=== PATIENT | female | born 1990 | race American Indian/Alaskan Native ===

== ENCOUNTER 2017-12-11 19:34 | Inpatient (IN) | payer OTHER ==
[2017-12-11] MEDS ORDERED: MINERAL OIL PO PRN (20:10)
[2017-12-11] MEDS ORDERED: SUBLIMAZE IV PRN (20:10)
[2017-12-11] MEDS ORDERED: CERVIDIL VG ONE (20:10)
[2017-12-11] MEDS ORDERED: BRETHINE IVP PRN (20:10)
[2017-12-11] MEDS ORDERED: XYLOCAINE 2% INFILTRATI ONE (20:10)
[2017-12-11] MEDS ORDERED: BRETHINE SUB-Q PRN (20:10)
[2017-12-11] MEDS ORDERED: POLYCILLIN/NS 2 GM/100 ML 2 GM/100 ML BAG IV ONE (20:10)
[2017-12-11] MEDS ORDERED: ePHEDrine SULFATE IV PRN (20:10)
--- NOTE | 2017-12-11 20:20 | History and Physical Report ---
History of Present Illness Date of examination: 12/11/17 Date of admission: 12/11/17 19:34 Chief complaint: sent from office for IOL History of present illness: Pt diagnosed with severe pre E superimposed on CHTN. As per Dr. Ornelas pt to be delivered by 37 weeks. Pt is 36.6 weeks with bps 160s/100s. Pt sent from office at 1600pm but has just arrived for IOL for severe pre E superimposed on CHTN. She has not been seen in the office since but was being seen by [facility] Medications and Allergies Allergies Allergy/AdvReac Type Severity Reaction Status Date / Time No Known Allergies Allergy Unverified 12/11/17 20:06 Active Meds: Active Medications Dinoprostone (Cervidil) 10 mg VG ONCE ONE Stop: 12/11/17 20:11 Ephedrine Sulfate (Ephedrine Sulfate) 10 mg IV Q2M PRN PRN Reason: Hypotension Fentanyl (Sublimaze) 100 mcg IV Q2H PRN PRN Reason: Labor Pain Hydralazine HCl (Apresoline) 10 mg IV Q30MIN PRN PRN Reason: Hypertension Ampicillin Sodium (Ampicillin/Ns 1 Gm/50 Ml) 1 gm in 50 mls @ 100 mls/hr IV Q4HR CHELY; Protocol Ampicillin Sodium (Polycillin/Ns 2 Gm/100 Ml) 2 gm in 100 mls @ 100 mls/hr IV ONCE ONE; Protocol Stop: 12/11/17 21:09 Lactated Ringer's (Lactated Ringers) 1,000 mls @ 125 mls/hr IV DIRECT CHELY - Vital Signs Vital signs: Vital Signs Pulse BP Pulse Ox 101 H 196/108 99 12/11/17 19:55 12/11/17 19:55 12/11/17 19:55 Temp Pulse Resp BP Pulse Ox 93 H 181/109 99 12/11/17 20:10 12/11/17 20:10 12/11/17 20:00 Results All other labs normal.
[2017-12-11] MEDS ORDERED: MAGNESIUM SULFATE 4GM/100ML 4 GM/100 ML BAG IV ONE (20:36)
[2017-12-11] MEDS: APRESOLINE IV PRN (20:51)
[2017-12-11 20:54] LABS: Hematocrit 28.1 % (30.3-42.9); Hemoglobin 8.9 gm/dl (10.1-14.3); Mean Corpuscular HGB Conc 32 % (30-34); Platelet Count 354 K/mm3 (140-440); Red Blood Count 4.06 M/mm3 (3.65-5.03); Red Cell Distribution Width 17.3 % (13.2-15.2)
[2017-12-11 20:55] LABS: Mean Corpuscular Hemoglobin 22 pg (28-32); Mean Corpuscular Volume 69 fl (79-97)
[2017-12-11] MEDS ORDERED: PITOCin/NS 30 UNIT/500ML 30 UNITS/500 ML BAG IV SCH (21:00)
[2017-12-11] MEDS ORDERED: PITOCin/NS 20 UNIT/1000ML DRIP 20 UNITS/1,000 ML BAG IV SCH (21:00)
[2017-12-11] MEDS ORDERED: MAGNESIUM SULFATE 40GM/1000ML 40 GM/1,000 ML BAG IV SCH (21:00)
[2017-12-11 21:23] LABS: Alanine Aminotransferase 23 units/L (7-56); Uric Acid 4.2 mg/dL (3.5-7.6)
[2017-12-11] MEDS: LACTATED RINGERS 1,000 ML IV SCH (22:26)
[2017-12-12] MEDS ORDERED: AMPICILLIN/NS 1 GM/50 ML 1 GM/50 ML BAG IV SCH
[2017-12-12] MEDS: APRESOLINE IV PRN ×3 (00:26→17:55)
[2017-12-12] MEDS ORDERED: ZOFRAN IV PRN ×2 (00:50→14:14)
[2017-12-12] MEDS ORDERED: ZOFRAN ONE ×2 (00:52→15:24)
--- NOTE | 2017-12-12 08:46 | Progress Note ---
Assessment and Plan Patient c/o feeling like her heart is beating fast, requesting c/s delivery d/ t concerns over heart condition. Patient states she was supposed to see cardiology next week for final clearance for vaginal delivery. Records printed from 09/15/[address] Angela states pt should be able to have vaginal delivery unless a c/s is obstetrically necessary. Patient states she "doesn't feel comfortable" with continuing induction. Mag Sulfate infusing @ 2gm/hr, urine output adequate. pt denies MEI, change in vision or epigastric pain. maternal tachycardia in the 100's. b/p's elevated, last check 142/79. Cervidil remains in place until 10:[address] Dominguez can speak to patient. Dr. Dominguez informed. - Patient Problems (1) 37 weeks gestation of Current Visit: Yes Status: Acute (2) Pre-eclampsia superimposed on chronic hypertension, antepartum Current Visit: Yes Status: Acute (3) Severe pre-eclampsia Current Visit: Yes Status: Acute Qualifiers: Trimester: third trimester Qualified Code(s): O14.13 - Severe pre-eclampsia , third trimester (4) VSD (ventricular septal defect) Current Visit: Yes Status: Acute Subjective - Subjective Date of service: 12/12/17 Principal diagnosis: IUP @ 37 weeks: chtn superimposed pre-e, perimembranous VSD Patient reports: movement normal, contractions, no loss of fluid, no vaginal bleeding Objective - Vital Signs Vital Signs: Vital Signs - 12hr 12/11/17 12/11/17 12/11/17 20:50 20:51 20:55 Temperature Pulse Rate 92 H 92 H 98 H Respiratory 18 Rate Blood Pressure 170/102 179/113 Blood Pressure 170/102 [Left] O2 Sat by Pulse 100 Oximetry 12/11/17 12/11/17 12/11/17 21:42 22:11 22:12 Temperature Pulse Rate 93 H 104 H 103 H Respiratory 18 Rate Blood Pressure Blood Pressure 179/101 [Left] O2 Sat by Pulse 100 93 97 Oximetry 12/11/17 12/11/17 12/11/17 22:17 22:19 22:22 Temperature Pulse Rate 106 H 106 H 108 H Respiratory Rate Blood Pressure 164/89 Blood Pressure [Left] O2 Sat by Pulse 100 100 Oximetry 12/11/17 12/11/17 12/11/17 22:35 22:51 23:05 Temperature Pulse Rate 98 H 104 H 105 H Respiratory Rate Blood Pressure 148/82 166/104 151/85 Blood Pressure [Left] O2 Sat by Pulse Oximetry 12/11/17 12/11/17 12/11/17 23:20 23:35 23:39 Temperature Pulse Rate 111 H 110 H 113 H Respiratory Rate Blood Pressure 161/93 162/91 Blood Pressure [Left] O2 Sat by Pulse 100 Oximetry 12/11/17 12/12/17 12/12/17 23:50 00:07 00:21 Temperature Pulse Rate 110 H 129 H 115 H Respiratory Rate Blood Pressure 171/94 205/104 184/104 Blood Pressure [Left] O2 Sat by Pulse Oximetry 12/12/17 12/12/17 12/12/17 00:26 00:31 00:35 Temperature Pulse Rate 115 H 111 H 107 H Respiratory Rate Blood Pressure 181/104 159/88 Blood Pressure [Left] O2 Sat by Pulse 100 Oximetry 12/12/17 12/12/17 12/12/17 00:36 00:41 00:52 Temperature Pulse Rate 116 H 126 H 121 H Respiratory Rate Blood Pressure 160/98 Blood Pressure [Left] O2 Sat by Pulse 100 100 Oximetry 12/12/17 12/12/17 12/12/17 01:06 01:20 01:27 Temperature Pulse Rate 112 H 115 H 117 H Respiratory Rate Blood Pressure 142/78 146/78 Blood Pressure [Left] O2 Sat by Pulse 100 Oximetry 12/12/17 12/12/17 12/12/17 01:32 01:35 01:37 Temperature Pulse Rate 132 H 117 H 112 H Respiratory Rate Blood Pressure 147/79 Blood Pressure [Left] O2 Sat by Pulse 99 98 Oximetry 12/12/17 12/12/17 12/12/17 01:42 01:47 01:51 Temperature Pulse Rate 113 H 113 H 111 H Respiratory Rate Blood Pressure 146/70 Blood Pressure [Left] O2 Sat by Pulse 99 100 Oximetry 12/12/17 12/12/17 12/12/17 01:52 01:55 01:57 Temperature Pulse Rate 116 H 115 H 116 H Respiratory Rate Blood Pressure Blood Pressure [Left] O2 Sat by Pulse 98 82 L 96 Oximetry 12/12/17 12/12/17 12/12/17 02:02 02:05 02:07 Temperature Pulse Rate 114 H 109 H 113 H Respiratory Rate Blood Pressure 140/77 Blood Pressure [Left] O2 Sat by Pulse 100 100 Oximetry 12/12/17 12/12/17 12/12/17 02:12 02:17 02:19 Temperature 98 F Pulse Rate 109 H 117 H Respiratory 20 Rate Blood Pressure Blood Pressure [Left] O2 Sat by Pulse 100 100 Oximetry 12/12/17 12/12/17 12/12/17 02:20 02:22 02:27 Temperature Pulse Rate 116 H 116 H 108 H Respiratory Rate Blood Pressure 149/78 Blood Pressure [Left] O2 Sat by Pulse 100 100 Oximetry 12/12/17 12/12/17 12/12/17 02:32 02:36 02:37 Temperature Pulse Rate 103 H 108 H 103 H Respiratory Rate Blood Pressure 164/100 Blood Pressure [Left] O2 Sat by Pulse 100 100 Oximetry 12/12/17 12/12/17 12/12/17 02:42 02:47 02:52 Temperature Pulse Rate 116 H 110 H 111 H Respiratory Rate Blood Pressure 137/80 Blood Pressure [Left] O2 Sat by Pulse 100 100 100 Oximetry 12/12/17 12/12/17 12/12/17 02:57 03:02 03:05 Temperature Pulse Rate 116 H 115 H 117 H Respiratory Rate Blood Pressure 140/81 Blood Pressure [Left] O2 Sat by Pulse 99 99 Oximetry 12/12/17 12/12/17 12/12/17 03:07 03:12 03:17 Temperature Pulse Rate 115 H 116 H 110 H Respiratory Rate Blood Pressure Blood Pressure [Left] O2 Sat by Pulse 100 99 99 Oximetry 12/12/17 12/12/17 12/12/17 03:20 03:22 03:27 Temperature Pulse Rate 110 H 116 H 105 H Respiratory Rate Blood Pressure 144/77 Blood Pressure [Left] O2 Sat by Pulse 99 100 Oximetry 12/12/17 12/12/17 12/12/17 03:32 03:36 03:37 Temperature Pulse Rate 103 H 105 H 121 H Respiratory Rate Blood Pressure 155/101 Blood Pressure [Left] O2 Sat by Pulse 100 100 Oximetry 12/12/17 12/12/17 12/12/17 03:42 03:47 03:52 Temperature Pulse Rate 109 H 107 H 110 H Respiratory Rate Blood Pressure 160/92 Blood Pressure [Left] O2 Sat by Pulse 100 100 98 Oximetry 12/12/17 12/12/17 12/12/17 03:59 04:05 04:06 Temperature Pulse Rate 120 H 120 H 117 H Respiratory Rate Blood Pressure 145/78 Blood Pressure [Left] O2 Sat by Pulse 100 100 Oximetry 12/12/17 12/12/17 12/12/17 04:10 04:15 04:19 Temperature 98 F Pulse Rate 111 H 113 H Respiratory 18 Rate Blood Pressure Blood Pressure [Left] O2 Sat by Pulse 100 100 Oximetry 12/12/17 12/12/17 12/12/17 04:20 04:25 04:55 Temperature Pulse Rate 120 H 113 H 104 H Respiratory Rate Blood Pressure 151/81 153/81 Blood Pressure [Left] O2 Sat by Pulse 100 100 Oximetry 12/12/17 12/12/17 12/12/17 05:24 05:54 06:26 Temperature Pulse Rate 137 H 137 H 101 H Respiratory Rate Blood Pressure 139/88 144/88 165/101 Blood Pressure [Left] O2 Sat by Pulse Oximetry 12/12/17 12/12/17 12/12/17 06:55 07:25 07:55 Temperature Pulse Rate 118 H 102 H 102 H Respiratory Rate Blood Pressure 148/102 163/87 162/106 Blood Pressure [Left] O2 Sat by Pulse Oximetry 12/12/17 12/12/17 12/12/17 08:25 08:29 08:34 Temperature Pulse Rate 98 H 106 H 102 H Respiratory Rate Blood Pressure 158/100 Blood Pressure [Left] O2 Sat by Pulse 100 100 Oximetry 12/12/17 08:39 Temperature Pulse Rate 109 H Respiratory Rate Blood Pressure Blood Pressure [Left] O2 Sat by Pulse 100 Oximetry - Exam Breasts: normal Cardiovascular: Other (murmur present) Abdomen: Present: normal appearance, soft Vulva: both: normal Uterus: Present: normal FHR: category 1 Uterine Contraction Monitor Mode: External Uterine Contraction Pattern: Regular Uterine Tone Measurement Phase: Contraction Uterine Contraction Intensity: Mild Extremities: normal Deep Tendon Reflex Grade: Normal +2 - Labs Labs: Abnormal Labs 12/11/17 12/11/17 12/12/17 20:39 20:39 01:50 WBC 11.4 H Hgb 8.9 L Hct 28.1 L MCV 69 L MCH 22 L RDW 17.3 H Magnesium 3.90 H Lactate Dehydrogenase 302 H 12/12/17 06:12 WBC Hgb Hct MCV MCH RDW Magnesium 4.60 H Lactate Dehydrogenase Laboratory Results - last 24 hr 12/11/17 12/11/17 12/11/17 20:00 20:39 20:39 WBC 11.4 H RBC 4.06 Hgb 8.9 L Hct 28.1 L MCV 69 L MCH 22 L MCHC 32 RDW 17.3 H Plt Count 354 Creatinine 0.7 Estimated GFR > 60 Uric Acid 4.2 Magnesium AST 24 ALT 23 Lactate Dehydrogenase 302 H Blood Type B POSITIVE Antibody Screen Negative 12/12/17 12/12/17 01:50 06:12 WBC RBC Hgb Hct MCV MCH MCHC RDW Plt Count Creatinine Estimated GFR Uric Acid Magnesium 3.90 H 4.60 H AST ALT Lactate Dehydrogenase Blood Type Antibody Screen
[2017-12-12] MEDS: LACTATED RINGERS 1,000 ML IV SCH (10:50)
--- NOTE | 2017-12-12 12:18 | Event Note ---
Date: 12/12/17 Came to see the patient due to her desire to have an elective primary section. Patient now with episodes of elevated blood pressures with diastolics over 100 has gotten better with Apresoline and the patient now remote from vaginal delivery with increase in blood pressures. These are indications for operative delivery which the patient desires.Patient informed the risks of the surgery include bleeding possibly bleeding heavy enough to require blood transfusion, infection possible damage to bowel bladder ureter. All questions answered. Patient agrees to proceed
[2017-12-12] MEDS ORDERED: TYLENOL PO ONE (12:49)
--- NOTE | 2017-12-12 13:44 | Anesthesia Day of Surgery ---
Anesthesia Day of Surgery - Day of Surgery Patient Examined: Yes Patient H&P Reviewed: Yes Patient is NPO: Yes Beta Blockers: No Cardiac Clearance: No Pulmonary Clearance: No
--- NOTE | 2017-12-12 13:45 | Anesthesia Consultation ---
Anesthesia Consult and Med Hx - Airway Anesthetic Teeth Evaluation: Good ROM Head & Neck: Adequate Mental/Hyoid Distance: Adequate Mallampati Class: Class III Intubation Access Assessment: Probably Good - Pulmonary Exam CTA: Yes - Cardiac Exam Anesthetic Concerns: Preeclampsia and heart murmur - Pre-Operative Health Status ASA Pre-Surgery Classification: ASA3 Proposed Anesthetic Plan: General - Pulmonary Hx Smoking: No Hx Asthma: No Hx Respiratory Symptoms: No SOB: No COPD: No Home Oxygen Therapy: No Hx Pneumonia: No - Cardiovascular System Hx Hypertension: Yes Hx Coronary Artery Disease: No Hx Heart Attack/AMI: No Hx Angina: No Hx Percutaneous Transluminal Coronary Angioplasty (PTCA): No Hx Cardia Arrhythmia: No Hx Pacemaker: No Hx Internal Defibrillator: No Hx Valvular Heart Disease: No Hx Heart Murmur: No Hx Peripheral Vascular Disease: No - Central Nervous System Hx Neuromuscular Disorder: No Hx Seizures: No CVA: No Hx Back Pain: No Hx Psychiatric Problems: No - Gastrointestinal Hx Ulcer: No Hx Gastroesophageal Reflux Disease: No - Endocrine Hx Renal Disease: No Hx End Stage Renal Disease: No Hx Cirrhosis: No Hx Liver Disease: No Hx Insulin Dependent Diabetes: No Hx Non-Insulin Dependent Diabetes: No Hx Thyroid Disease: No Hx Hypothyroidism: No Hx Hyperthyroidism: No - Hematic Hx Sickle Cell Disease: No - Other Systems Hx Alcohol Use: No Hx Substance Use: No Hx Cancer: No Hx Obesity: No
[2017-12-12] MEDS ORDERED: ANCEF/STERILE WATER 2 GM/20 ML 2 GM/20 ML SYRINGE IV ONE (14:13)
[2017-12-12] MEDS ORDERED: BICITRA ONE (14:13)
[2017-12-12] MEDS ORDERED: PEPCID IV ONE (14:14)
[2017-12-12] MEDS ORDERED: PHENERGAN PO PRN (14:14)
[2017-12-12] MEDS ORDERED: NARCAN 0.4 MG/1 ML IV PRN (14:14)
[2017-12-12] MEDS ORDERED: PHENERGAN PR PRN (14:14)
[2017-12-12] MEDS ORDERED: DILAUDID IV PRN (14:14)
[2017-12-12] MEDS ORDERED: BENADRYL IV PRN (14:14)
[2017-12-12] MEDS ORDERED: REGLAN ONE (14:14)
[2017-12-12] MEDS ORDERED: TORADOL IV PRN (14:15)
[2017-12-12] MEDS ORDERED: NACL 0.9% IR ONE (15:00)
[2017-12-12] MEDS ORDERED: SODIUM CHLORIDE FLUSH SYRINGE 10 ML IV NR (15:00)
[2017-12-12] MEDS ORDERED: WATER FOR IRRIG STERILE IR ONE (15:00)
[2017-12-12] MEDS ORDERED: NEO SYNEPHRINE/NS Syringe(OR USE) IV ONE (15:22)
[2017-12-12] MEDS ORDERED: MORPHINE ONE (15:23)
--- NOTE | 2017-12-12 15:57 | Operative Report ---
Operative Report Operative Report: Date of procedure: 12/12/2017 Pre-operative diagnosis: Intrauterine at 37 weeks with chronic hyper tension was superimposed preeclampsia, elevated blood pressures remote from vaginal delivery Post-operative diagnosis: Same Procedure name(s): Primary low transverse section Surgeon: Sathish Dominguez MD Java Scala Developer: Kajal Morgan CST Anesthesia: Spinal EBL: 800 mL Complications: None Findings: Visual normal uterus tubes and ovaries bilaterally female , weight 5 lbs. 9 oz. Apgars 8 at 1 minute and 9 at 5 minutes Specimen(s): None Procedure: The patient was brought to the operating room. A spinal was placed without any complications. She was then placed in left lateral tilt. Prepped and draped in the usual sterile manner. After testing for adequate anesthesia level, a Pfannenstiel incision was made. This incision was taken down to the fascia. The fascia was then nicked in the midline. This incision was extended out laterally with Canales scissors. The fascia was then sharply and bluntly from the underlying rectus muscles. The rectus muscles were bluntly and sharply . The peritoneum was then entered with the radio operator ground's fingers. This incision was spread vertically with care not to damage the bladder below. The bladder flap was then formed sharply and bluntly with Metzenbaum scissors. The Marcell self-retaining tractor was then placed without any difficulty. A transverse incision was made in lower uterine segment. This incision was extended laterally with the operators fingers. The amniotic sac was then entered bluntly with the radio operator ground's fingers. The was delivered from the vertex position. Bulb suction on the mother's abdomen. Cord was double clamped and cut. The infant was then passed to the nursery personnel who were in attendance. The above scores were given by the nursery personnel. The placenta was then bluntly removed. The uterus was then externalized and wiped clean the remaining products. Uterus was initially with some atony improved with IV Pitocin. The uterine incision was closed in layers. The first incision was closed in a locking manner using 0 Vicryl. This was followed by imbricating stitch also with 0 Vicryl. This closure was hemostatic. The bladder flap was copiously irrigated and found to be hemostatic. The pelvis was copiously irrigated and found to be hemostatic. The uterus was then placed back to the patient's abdomen. The retractors were removed. The rectus muscles were inspected and found to be hemostatic. The fascia was then closed in a running manner using 0 Vicryl. This incision was hemostatic irrigation Bovie. The skin was reapproximated with 4-0 Vicryl subcuticularly. The patient tolerated procedure well. Her urine was clear. The was admitted to the nursery. The patient was accompanied to recovery room in good condition. Instrument count correct -3.
[2017-12-12] MEDS ORDERED: MAGNESIUM SULFATE 40GM/1000ML 40 GM/1,000 ML BAG IV SCH (16:00)
[2017-12-12] MEDS ORDERED: NORMODYNE IV ONE (17:40)
[2017-12-13] MEDS ORDERED: TUCKS PAD TP PRN (00:18)
[2017-12-13] MEDS ORDERED: MYLICON PO PRN (00:18)
[2017-12-13] MEDS ORDERED: ANCEF/NS 1 GM/50 ML 1 GM/50 ML BAG IV SCH (00:18)
[2017-12-13] MEDS ORDERED: MILK OF MAGNESIA PO PRN (00:18)
[2017-12-13] MEDS ORDERED: PITOCin/NS 20 UNIT/1000ML DRIP 20 UNITS/1,000 ML BAG IV SCH (00:18)
[2017-12-13] MEDS ORDERED: LANSINOH TP PRN (00:18)
[2017-12-13] MEDS ORDERED: NARCAN 0.4 MG/1 ML IV PRN (00:18)
[2017-12-13] MEDS ORDERED: D5LR 1,000 ML IV SCH (00:18)
[2017-12-13] MEDS ORDERED: SODIUM CHLORIDE FLUSH SYRINGE 10 ML IV NR (00:18)
[2017-12-13] MEDS ORDERED: ZOFRAN IV PRN (00:18)
[2017-12-13] MEDS: TORADOL IV SCH ×2 (00:44→08:18)
[2017-12-13] MEDS: ceFAZolin 1 GM in NACL 0.9% 20 ML IV SCH ×2 (01:15→09:12)
[2017-12-13] MEDS: NORMODYNE PO SCH ×3 (01:26→21:20)
[2017-12-13 03:42] LABS: Hematocrit 31.7 % (30.3-42.9)
[2017-12-13] MEDS ORDERED: BOOSTRIX IM ONE (06:00)
--- NOTE | 2017-12-13 07:29 | Event Note ---
Date: 12/13/17 Mag level 7.4 noted during chart review this morning, nurse called and instructed to turn mag down to 1gm/hr.
[2017-12-13] MEDS: PRENATAL VITAMIN PO SCH (10:19)
--- NOTE | 2017-12-13 10:44 | Progress Note ---
Assessment and Plan patient doing well, no complaints. VSSAF - b/p's 115-130/70-80's with one outlier of 155/103. Patient denies MEI, visual changes or epigastric pain. Most recent mag level 7.4 - reduced mag to 1gm/hr until d/c @ 1500. [place] in place, output adequate (rn emptied 400ml this AM - not yet documented in chart; 33.3ml/ hr). Will continue to monitor output. postop H&H 05/13.7. Continue postop pathway. - Patient Problems (1) Pre-eclampsia superimposed on chronic hypertension, antepartum Current Visit: Yes Status: Acute (2) VSD (ventricular septal defect) Current Visit: Yes Status: Acute (3) delivery delivered Current Visit: Yes Status: Acute Subjective - Subjective Date of service: 12/13/17 Principal diagnosis: postop day #1 s/p primary c/s, pre-e Patient reports: appetite normal, pain well controlled, no flatus, no nauseated [place]: doing well, bottle feeding Objective - Vital Signs Latest vital signs: Vital Signs Temp Pulse Resp BP BP Pulse Ox 12/13/17 10:19 84 135/89 12/13/17 10:13 98.0 F 83 18 135/89 97 12/13/17 08:23 97.5 F L 80 18 131/88 97 12/13/17 06:16 97.5 F L 81 19 115/77 96 12/13/17 05:29 128/72 12/13/17 05:23 97.5 F L 81 19 115/77 96 12/13/17 01:26 155/103 12/12/17 23:00 98.6 F 87 16 137/87 12/12/17 20:44 86 98 12/12/17 20:39 83 98 12/12/17 20:35 86 146/85 12/12/17 20:34 87 97 12/12/17 20:29 90 98 12/12/17 20:24 92 H 98 12/12/17 20:20 90 150/86 12/12/17 20:19 94 H 98 12/12/17 20:14 90 98 12/12/17 20:09 86 98 12/12/17 20:05 92 H 146/85 12/12/17 20:04 94 H 98 12/12/17 19:59 86 97 12/12/17 19:54 85 98 12/12/17 19:50 86 142/83 12/12/17 19:49 93 H 98 12/12/17 19:44 99 H 98 12/12/17 19:39 87 97 12/12/17 19:35 88 151/84 12/12/17 19:34 91 H 97 12/12/17 19:32 97.8 F 18 12/12/17 19:29 87 95 12/12/17 19:28 18 12/12/17 19:24 85 96 12/12/17 19:20 87 148/84 12/12/17 19:19 93 H 97 12/12/17 19:14 89 96 12/12/17 19:09 90 97 12/12/17 19:05 90 148/84 12/12/17 19:04 88 98 12/12/17 18:59 87 98 12/12/17 18:54 91 H 97 12/12/17 18:50 92 H 144/81 12/12/17 18:49 95 H 97 12/12/17 18:47 92 H 144/81 12/12/17 18:44 96 H 98 12/12/17 18:39 97 H 98 12/12/17 18:37 182/96 12/12/17 18:35 98 H 182/96 12/12/17 18:20 180/101 12/12/17 18:12 178/104 12/12/17 17:55 178/110 12/12/17 17:52 98 12/12/17 17:40 171/105 12/12/17 17:30 170/107 12/12/17 17:05 98 F 84 20 163/102 12/12/17 17:00 84 21 166/101 12/12/17 16:57 83 23 160/95 12/12/17 16:55 84 23 160/95 12/12/17 16:50 85 22 158/96 12/12/17 16:45 87 22 160/96 99 12/12/17 16:40 84 20 154/94 99 12/12/17 16:35 85 22 140/95 100 12/12/17 16:30 91 H 26 H 137/89 99 12/12/17 16:25 85 24 144/88 100 12/12/17 16:20 92 H 23 154/94 100 12/12/17 16:15 87 26 H 154/92 100 12/12/17 16:10 89 25 H 153/93 100 12/12/17 16:05 98 H 15 156/88 100 12/12/17 16:00 95 H 25 H 146/96 94 12/12/17 15:56 94 H 25 H 100 12/12/17 15:53 98 F 94 H 16 141/81 100 12/12/17 15:00 58 L 15 100 12/12/17 14:58 62 9 L 100 12/12/17 14:04 101 H 98 12/12/17 13:59 100 H 98 12/12/17 13:55 106 H 158/85 12/12/17 13:54 107 H 99 12/12/17 13:49 102 H 99 12/12/17 13:44 108 H 99 12/12/17 13:39 106 H 98 12/12/17 13:34 102 H 97 12/12/17 13:29 103 H 98 12/12/17 13:24 104 H 143/92 97 12/12/17 13:19 98 H 97 12/12/17 13:14 99 H 98 12/12/17 13:00 110 H 98 12/12/17 12:55 107 H 149/89 98 12/12/17 12:50 114 H 99 12/12/17 12:45 110 H 99 12/12/17 12:24 116 H 134/78 12/12/17 11:55 111 H 129/74 12/12/17 11:25 111 H 141/77 12/12/17 11:10 116 H 99 12/12/17 11:05 107 H 100 12/12/17 11:00 112 H 100 12/12/17 10:54 99 H 148/84 12/12/17 10:52 104 H 157/84 12/12/17 10:49 157/84 12/12/17 10:47 100 H 100 12/12/17 10:42 100 H 100 Intake and Output 12/12/17 12/13/17 12/13/17 23:59 07:59 15:59 Intake Total 300 Output Total 300 Balance 0 Intake: Intake, Free Water 300 Output: Urine 300 Indwelling Catheter 300 Other: Total, Output Amount 300 - Exam Breasts: Present: normal Cardiovascular: Present: Regular rate Lungs: Present: Clear to auscultation, Normal air movement Abdomen: Present: normal appearance, soft Vulva: both: normal Uterus: Present: normal, firm, fundal height at umbilicus Extremities: Present: normal Incision: Present: normal, dry, dressed (rn to remove this afternoon) - Labs Labs: Abnormal lab results 12/12/17 12/12/17 12/13/17 Range/Units 12:41 17:50 00:17 Hgb (10.1-14.3) gm/dl Magnesium 5.50 H 5.40 H 6.00 H (1.7-2.3) mg/dL 12/13/17 12/13/17 Range/Units 03:23 05:41 Hgb 10.0 L (10.1-14.3) gm/dl Magnesium 7.40 H (1.7-2.3) mg/dL
[2017-12-13] MEDS: MOTRIN PO PRN (17:50)
--- NOTE | 2017-12-13 19:48 | Progress Note ---
Subjective Date of service: 12/13/17 Principal diagnosis: postop day #1 s/p primary c/s, pre-e Interval history: Pt is doing well. No anesthetic related complaints. Objective - Constitutional Vitals: Vital Signs - 12hr 12/13/17 12/13/17 12/13/17 08:23 10:13 10:19 Temperature 97.5 F L 98.0 F Pulse Rate 80 83 84 Respiratory 18 18 Rate Blood Pressure 131/88 135/89 135/89 O2 Sat by Pulse 97 97 Oximetry 12/13/17 15:15 Temperature 97.6 F Pulse Rate 86 Respiratory 18 Rate Blood Pressure 131/88 O2 Sat by Pulse 100 Oximetry - Labs CBC & Chem 7: 12/13/17 03:23 12/11/17 20:39 Labs: Abnormal lab results 12/13/17 12/13/17 12/13/17 Range/Units 00:17 03:23 05:41 Hgb 10.0 L (10.1-14.3) gm/dl Magnesium 6.00 H 7.40 H (1.7-2.3) mg/dL
[2017-12-13] MEDS: NORCO 5/325 PO PRN (21:21)
[2017-12-14] MEDS: MOTRIN PO PRN ×3 (00:05→16:00)
[2017-12-14] MEDS: NORCO 5/325 PO PRN ×3 (05:15→18:00)
[2017-12-14] MEDS ORDERED: BOOSTRIX IM ONE (06:00)
[2017-12-14] MEDS: NORMODYNE PO SCH ×2 (10:00→22:30)
[2017-12-14] MEDS: PRENATAL VITAMIN PO SCH (10:43)
--- NOTE | 2017-12-14 12:08 | Progress Note ---
Assessment and Plan patient doing well, no complaints. pain well controlled. lochia scant, incision D&I. B/P running 130-150's/80-90's w/ one outlier 172/105. patient states she was in pain at that time. Patient is taking labetalol 200mg BID. Will continue to monitor, continue postop pathway. - Patient Problems (1) Pre-eclampsia superimposed on chronic hypertension, antepartum Current Visit: Yes Status: Acute (2) VSD (ventricular septal defect) Current Visit: Yes Status: Acute (3) delivery delivered Current Visit: Yes Status: Acute Subjective - Subjective Date of service: 12/14/17 Principal diagnosis: postop day #2 s/p primary c/s, pre-e Patient reports: appetite normal, voiding normally, pain well controlled, ambulating normally, no dizzy ambulation, no nauseated : doing well, bottle feeding Objective - Vital Signs Latest vital signs: Vital Signs Temp Pulse Resp BP BP Pulse Ox 12/14/17 10:15 20 12/14/17 10:00 81 158/99 12/14/17 08:54 98.5 F 81 20 158/99 97 12/14/17 05:00 86 141/80 12/14/17 04:02 96.8 F L 89 20 172/105 100 12/14/17 02:15 98.4 F 75 20 131/80 99 12/13/17 21:20 85 149/97 12/13/17 20:18 98.4 F 85 20 149/97 97 12/13/17 15:15 97.6 F 86 18 131/88 100 Intake and Output 12/13/17 12/14/17 12/14/17 23:59 07:59 15:59 Intake Total 480 Output Total 1200 300 Balance -1200 180 Intake: Oral 120 Intake, Free Water 360 Output: Urine 1200 300 Indwelling Catheter 600 Void 600 300 Other: Total, Intake Amount 120 Total, Output Amount 600 300 # Voids Void 1 - Exam Breasts: Present: normal Cardiovascular: Present: Regular rate Lungs: Present: Clear to auscultation, Normal air movement Abdomen: Present: normal appearance, soft Vulva: both: normal Uterus: Present: normal, firm, fundal height at umbilicus Extremities: Present: normal Deep Tendon Reflex Grade: Normal +2 Incision: Present: normal, dry, intact
[2017-12-14] MEDS ORDERED: NORMODYNE PO ONE (18:00)
--- NOTE | 2017-12-14 22:09 | Event Note ---
Date: 12/14/17 Patient has now had several b/p's with diastolics in the the low 100's. Will increase labetalol to 300mg PO BID. Dr. Dominguez aware. Will continue to monitor.
[2017-12-15] MEDS: NORCO 5/325 PO PRN ×2 (01:32→13:12)
[2017-12-15] MEDS: MOTRIN PO PRN ×2 (01:32→13:11)
--- NOTE | 2017-12-15 07:39 | Discharge Summary ---
Providers - Providers Date of Admission: 12/11/17 19:34 Date of discharge: 12/15/17 Attending physician: LEA PAYNE 12/13/17 00:18 Consult to Corporate Responsibility Officer [CONS] Routine Reason For Exam: Primary care physician: LEA PAYNE Hospitalization Reason for admission: induction of labor Procedure: section, primary low transverse Other procedures: none complications: none Discharge diagnosis: IUP at term delivered Mona baby: female Hospital course: H&P for the details. The patient was admitted for induction for superimposed preeclampsia. Induction patient continuing her elevated blood pressure remote from myofascial delivery incision was made to move to section. Patient underwent above procedure without complications. Her post operative course was complicated by elevated blood pressures. Patient antihypertensive medication had to be increased to a dose of 300 mg of labetalol twice a day She was afebrile throughout. Patient postoperative day 1 hematocrit was in an acceptable range. Patient had no orthostatic symptoms. Patient was tolerating regular diet and voiding without difficulty at time of discharge. Patient incision was healing well without evidence of infection. Patient will follow up in office in 1 week and patient plans to return to her primary care doctor for antihypertensive management. The patient is bottle feeding. Condition at discharge: Good Disposition: [id number] TO HOME OR SELFCARE - Discharge Diagnoses (1) delivery delivered Status: Acute (2) Chronic hypertension affecting Status: Chronic (3) Pre-eclampsia superimposed on chronic hypertension, antepartum Status: Acute (4) VSD (ventricular septal defect) Status: Chronic Plan - Discharge Medications Prescriptions: Ferrous Sulfate [Feosol 325 MG tab] 325 mg PO BID #60 tablet Ibuprofen [Motrin 800 MG tab] 800 mg PO Q6H PRN #30 tablet PRN Reason: Pain Labetalol [Normodyne TAB] 300 mg PO BID #60 tablet oxyCODONE /ACETAMINOPHEN [Percocet 5/325 mg] 1 - 2 tab PO Q4H PRN #30 tablet PRN Reason: Pain, Moderate - Provider Discharge Summary Activity: routine, no sex for 6 weeks, no heavy lifting 4 weeks, no strenuous exercise, other Diet: routine Instructions: routine Additional instructions: [] Smoking cessation referral if applicable(refer to patient education folder for contact #) [] Refer to [facility] Booklet Call your doctor immediately for: * Fever > 100.5 * Heavy vaginal bleeding ( >1 pad per hour) * Severe persistent headache * Shortness of breath * Reddened, hot, painful area to leg or breast * Drainage or odor from incision. * Keep incision clean and dry at all times and follow doctor's instructions regarding bathing/showering Keep scheduled appointment on 12/18/2017 - Follow up plan Follow up: LEA PAYNE MD [Primary Care Provider] - 7 Days
[2017-12-15] MEDS: NORMODYNE PO SCH (10:44)
[2017-12-15] MEDS: PRENATAL VITAMIN PO SCH (10:44)
[2017-12-15 15:49] VITALS: BP 168/103
== END 2017-12-15 14:30 | disposition home or self-care (01) | DRG 765 ==
LOC: LD 19:34 → OB 12-12 21:22
PROVIDERS: ADMIT Obstetrics & Gynecology; ATTEND Obstetrics & Gynecology
PROC: 10D00Z1 Extraction of Products of Conception, Low, Open Approach (ICD-10-PCS; principal; 2017-12-12)
DX: O11.4 Pre-existing hypertension with pre-eclampsia, complicating childbirth (principal); Q21.0 Ventricular septal defect; O10.92 Unspecified pre-existing hypertension complicating childbirth; Z3A.37 37 weeks gestation of pregnancy; Z37.0 Single live birth; O99.42 Diseases of the circulatory system complicating childbirth
CPT/HCPCS: 36415; 82565; 83615; 83735; 84450; 84460; 84550; 85014; 85018; 85027; 86592; 86850; 86900; 86901; 90471; 90715; J0360; J0690; J1170; J1885; J2270; J2370; J2405; J2590; J2765; J3475; J7120; J7121